=== PATIENT | male | born 1995 | race Caucasian/White ===

== ENCOUNTER 2017-11-06 09:25 | Emergency (ER) | payer SELFPAY ==
[2017-11-06] MEDS ORDERED: Ibuprofen TAB* 400 MG PO ONE (10:44)
[2017-11-06] MEDS ORDERED: Amoxicillin/Clavulanate TAB* 875 MG PO ONE (10:59)
[2017-11-06 11:16] VITALS: BP 143/72
--- NOTE | 2017-11-07 09:29 | ED ---
Julio C Cruz Angela, scribed for Popeye Winters MD on 11/06/17 at 1003 . Influenza-Like Illness - HPI Summary HPI Summary: This pt is a 21 y/o male [facility]/o sinus pressure, cough, sore throat, vomiting, and chills since this morning. Pt reports he had sinus pain all night. Pt notes he vomited approximately 5 times. He denies any PMHx. - History of Current Complaint Chief Complaint: EDFluSymptoms Time Seen by Provider: 11/06/17 09:33 Hx Obtained From: Patient Onset/Duration: Lasting Hours, Still Present Severity: Moderate Associated Signs & Symptoms: Fever, Myalgia, Cough, Sore Throat, Vomiting - Allergy/Home Medications Allergies/Adverse Reactions: Allergies Allergy/AdvReac Type Severity Reaction Status Date / Time No Known Allergies Allergy Verified 11/06/17 09:31 PMH/Surg Hx/FS Hx/Imm Hx Endocrine/Hematology History: Denies: Hx Diabetes Cardiovascular History: Denies: Hx Hypertension Infectious Disease History: No Infectious Disease History: Denies: Traveled Outside the [place] in Last 30 Days - Family History Known Family History: Negative: Cardiac Disease, Hypertension, Diabetes - Social History Alcohol Use: None Substance Use Type: Reports: None Smoking Status (MU): Never Smoked Tobacco Review of Systems Positive: Fever, Chills ENT: Other - sinus pain Positive: Sore Throat Positive: Cough Positive: Vomiting, Nausea All Other Systems Reviewed And Are Negative: Yes Physical Exam - Summary Physical Exam Summary: VITAL SIGNS: Reviewed. GENERAL: Patient is a well-developed and nourished male who is lying comfortable in the stretcher. Patient is not in any acute respiratory distress. HEAD AND FACE: No signs of trauma. No ecchymosis, hematomas or skull depressions. Sinus tenderness with some facial swelling. Positive for runny nose. EYES: PERRLA, EOMI x 2, No injected conjunctiva, no nystagmus. EARS: Hearing grossly intact. Ear canals and tympanic membranes are within normal limits. MOUTH: Pharyngeal erythema. NECK: Supple, trachea is midline, no adenopathy, no JVD, no carotid bruit, no c- spine tenderness, neck with full ROM. CHEST: Symmetric, no tenderness at palpation LUNGS: Clear to auscultation bilaterally. No wheezing or crackles. CVS: Regular rate and rhythm, S1 and S2 present, no murmurs or gallops appreciated. ABDOMEN: Soft, non-tender. No signs of distention. No rebound no guarding, and no masses palpated. Bowel sounds are normal. EXTREMITIES: FROM in all major joints, no edema, no cyanosis or clubbing. NEURO: Alert and oriented x 3. No acute neurological deficits. Speech is normal and follows commands. SKIN: Dry and warm Triage Information Reviewed: Yes Vital Signs On Initial Exam: Initial Vitals Temp Pulse Resp BP Pulse Ox 100.4 F 118 20 128/75 98 11/06/17 09:29 11/06/17 09:29 11/06/17 09:29 11/06/17 09:29 11/06/17 09:29 Vital Signs Reviewed: Yes Diagnostics - Vital Signs Vital Signs Temp Pulse Resp BP Pulse Ox 11/06/17 09:29 100.4 F 118 20 128/75 98 - Laboratory Lab Results: Lab Results 11/06/17 Range/Units 10:22 Influenza A (Rapid) Positive H (Negative) Influenza B (Rapid) Negative (Negative) Lab Statement: Any lab studies that have been ordered have been reviewed, and results considered in the medical decision making process. Flu Symptom Course/Dx - Course Assessment/Plan: This pt is a 21 y/o male presenting to [facility] c/o sinus pressure , cough, sore throat, vomiting, and chills since this morning. Pt reports he had sinus pain all night. Pt notes he vomited approximately 5 times. He denies any PMHx. Test results show influenza A is positive, I believe the pt also have an acute sinusitis therefore he was placed in Augmentin and Tamiflu for the flu. He was recommended to increase fluid intake and stay home for 72 hours. He will be discharged home with follow up from his PCP. Pt is hemodynamically stable, alert and oriented x3. - Diagnoses Differential Diagnosis/HQI/PQRI: Positive: Bronchitis, Influenza, Pneumonia, Upper Respiratory Infection Provider Diagnoses: Influenza A Discharge - Discharge Plan Condition: Stable Disposition: HOME Prescriptions: Amoxicillin PO (*) [Amoxicillin 875 MG (*)] 875 mg PO BID #20 tab Oseltamivir SUSP 75 MG dose* [Tamiflu SUSP 75 MG dose*] 75 mg PO BID #10 oral.syrin Patient Education Materials: Sinusitis (ED), Influenza (ED) Forms: *School Release Referrals: [facility] [Outside] - 1 Week Additional Instructions: Please follow up with your primary care provider. RETURN TO THE ED FOR ANY WORSENING SYMPTOMS. The documentation as recorded by the Julio C gray Angela accurately reflects the service I personally performed and the decisions made by , Popeye Winters MD.
== END 2017-11-06 11:15 | disposition home or self-care (01) ==
LOC: ED 09:25
DX: J09.X2 Influenza due to identified novel influenza A virus with other respiratory manifestations (principal); J02.9 Acute pharyngitis, unspecified; R05 Cough; R11.2 Nausea with vomiting, unspecified
CPT/HCPCS: 87502; 99282; A9270-GY